=== PATIENT | female | born 1970 | race American Indian/Alaskan Native ===

== ENCOUNTER 2016-12-12 17:00 | Emergency (ER) | payer BC, OTHER ==
[2016-12-12 17:10] VITALS: TEMP 98.8; BMI 46.0
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
[2016-12-12 19:37] VITALS: O2SAT 100
[2016-12-12 20:17] VITALS: BP 155/80; PULSE 62; RESP 18
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
--- NOTE | 2016-12-13 09:29 | CT ---
PROCEDURE: CT HEAD WITHOUT CONTRAST. HISTORY: headache COMPARISON: None available. TECHNIQUE: Axial computed tomography images were obtained through the head/brain without intravenous contrast. Radiation dose: Total exam DLP = 774 mGy-cm. This CT exam was performed using one or more of the following dose reduction techniques: Automated exposure control, adjustment of the mA and/or kV according to patient size, and/or use of iterative reconstruction technique. FINDINGS: HEMORRHAGE: No intracranial hemorrhage. BRAIN: No mass effect or edema. No atrophy or chronic microvascular ischemic changes. VENTRICLES: Unremarkable. No hydrocephalus. CALVARIUM: Unremarkable. PARANASAL SINUSES: Unremarkable as visualized. No significant inflammatory changes. MASTOID AIR CELLS: Unremarkable as visualized. No inflammatory changes. OTHER FINDINGS: The report concurs with the preliminary [facility] report IMPRESSION: No acute findings
--- NOTE | 2016-12-13 09:57 | CARD ---
APPROVED REPORT EKG Measurement Heart [id number] ID [id number] <Conclusion> Normal sinus rhythm Voltage criteria for left ventricular hypertrophy Nonspecific T wave abnormality Leftward axis
== END 2016-12-12 20:18 | disposition left against medical advice (07) ==
LOC: ED 17:00
DX: S39.012A Strain of muscle, fascia and tendon of lower back, initial encounter (principal); V43.52XA Car driver injured in collision with other type car in traffic accident, initial encounter; R51 Headache; I10 Essential (primary) hypertension; M25.561 Pain in right knee; K59.00 Constipation, unspecified
CPT/HCPCS: 70450; 72070; 72110; 73562; 93005; 96374; 99285; J1885